=== PATIENT | male | born 1965 | race Caucasian/White ===

== ENCOUNTER → 2025-04-26 12:49 | Outpatient (REF) | payer OTHER, SELFPAY | LOC: HWRCS 12:49 | PROVIDERS: ATTENDING PHYSICIAN Internal Medicine; FAMILY PHYSICIAN Internal Medicine | DX: I49.1 Atrial premature depolarization (principal); I10 Essential (primary) hypertension; R94.31 Abnormal electrocardiogram [ECG] [EKG]; R60.9 Edema, unspecified | CPT/HCPCS: 93306 ==